=== PATIENT | female | born 1975 | race Caucasian/White ===

== ENCOUNTER 2018-04-19 09:45 | Emergency (ER) | payer MEDICAID ==
[~2018-04-19] VITALS: Ht 167.6 cm; Wt 81.6 kg
[2018-04-19 09:50] VITALS: Ht 167.6 cm; Wt 81.6 kg
[2018-04-19 10:53] VITALS: BP 130/77
== END 2018-04-19 10:53 | disposition home or self-care (01) ==
LOC: ED 09:45
DX: S93.401A Sprain of unspecified ligament of right ankle, initial encounter (principal); E11.9 Type 2 diabetes mellitus without complications; W10.8XXA Fall (on) (from) other stairs and steps, initial encounter; Y93.89 Activity, other specified; Y92.89 Other specified places as the place of occurrence of the external cause; Y99.8 Other external cause status
CPT/HCPCS: Q0092

== ENCOUNTER 2019-10-19 15:58 | Emergency (ER) | payer MEDICAID ==
[~2019-10-19] VITALS: Ht 167.6 cm; Wt 76.2 kg
[2019-10-19 16:06] VITALS: Ht 167.6 cm; Wt 76.2 kg
[2019-10-19 18:14] VITALS: BP 142/71
== END 2019-10-19 18:14 | disposition home or self-care (01) ==
LOC: ED 15:58
DX: L03.314 Cellulitis of groin (principal); E11.9 Type 2 diabetes mellitus without complications
CPT/HCPCS: J0696; J1885